=== PATIENT | female | born 1990 | race Caucasian/White ===

== ENCOUNTER → 2016-05-03 | Outpatient (CLI) | payer BC ==
[2016-05-03 18:15] LABS: PROGESTERONE 0.7 NG/ML
[2016-05-03 18:16] LABS: FOLLICLE STIMULATING HORMONE 5.5 mIU/mL; LUTEINIZING HORMONE 11.1 mIU/mL; PROLACTIN 12.8 NG/ML
[2016-05-03 18:29] LABS: FREE T4 0.93 NG/DL (0.76-1.46)
== END ==
LOC: M SMT 12:21
PROVIDERS: ATTEND Specialist
DX: N93.8 Other specified abnormal uterine and vaginal bleeding (principal)

== ENCOUNTER → 2016-07-02 | Outpatient (REF) | payer BC | LOC: M LAB REF 12:02 | PROVIDERS: ATTEND Physician Assistant | DX: J02.9 Acute pharyngitis, unspecified (principal) ==